=== PATIENT | female | born 1960 | race American Indian/Alaskan Native ===

== ENCOUNTER 2021-05-15 11:09 | Outpatient (CLI) | payer MEDICARE ==
--- NOTE | 2021-05-15 13:56 | XRay Report ---
Bilateral knees INDICATION: Knee pain FINDINGS: Patellofemoral degenerative changes seen in bilateral knees with joint space narrowing. No acute fracture dislocation. No large effusion Signer Name: Burke Tapia MD Signed: 05/15/2021 1:52 PM Workstation Name: [id number]
== END 2021-05-15 11:10 | disposition home or self-care (01) ==
LOC: XRAY 11:09
PROVIDERS: ATTEND Nurse Practitioner Family
DX: M17.0 Bilateral primary osteoarthritis of knee (principal)

== ENCOUNTER 2021-11-29 11:32 | Emergency (ER) | payer MEDICARE ==
[2021-11-29 14:06] VITALS: BP 158/86
[2021-11-29] MEDS ORDERED: HYDROcodone/ACETAMINOPHEN 5-325 MG TAB PO ONE (15:23)
[2021-11-29] MEDS ORDERED: IBUPROFEN 800 MG TAB PO ONE (15:23)
[2021-11-29] MEDS ORDERED: CYCLOBENZAPRINE 10 MG TAB PO ONE (15:23)
--- NOTE | 2021-11-29 15:39 | Emergency Department Report ---
ED Fall HPI - General Chief Complaint: Fall Stated Complaint: FALL INJURY Time Seen by Provider: 11/29/21 15:21 Source: patient Mode of arrival: Ambulatory - History of Present Illness Initial Comments: 61-year-old female with history of breast cancer presents to the emergency dep artment after a fall injury. Patient reports she was at the [employer] when she tripped and fell over a bucket landing on her left side, states she was unable to stand after the event. Describes sharp pain all in her left side including her hip and knee thigh and ankle. She denies use of blood thinners, she denies injury to head neck or back, she denies headache dizziness vision changes. Symptoms associated with numbness in her foot. -: Sudden, hour(s) Fall From: standing When Fall Occurred: 1 hour [employer]ELD ADVIS[employer] Fall Witnessed: yes, by bystander Place Fall Occurred: other ([facility]) Loss of Consciousness: none Prolonged Down Time?: no Symptoms Prior to Fall: none Location - Extremities: Left: Shoulder, Leg, Ankle Severity: severe Severity scale (0 -10): 10 Quality: sharp Context: tripped/slipped Associated Symptoms: numbness, unable to walk. denies: headache, neck pain, chest paint, shortness of breath, abdominal pain, hematuria, lightheaded, vertigo - Related Data Previous Rx's Medication Instructions Recorded Last Taken Type Naproxen [Naprosyn] 500 mg PO BID PRN #30 tablet 11/29/21 Unknown Rx methOCARBAMOL [Robaxin TAB] 750 mg PO Q8H PRN #30 11/29/21 Unknown Rx traMADoL [Ultram 50 MG tab] 50 mg PO Q4HR PRN #12 tablet 11/29/21 Unknown Rx Allergies Allergy/AdvReac Type Severity Reaction Status Date / Time peach Allergy Swelling Verified 11/29/21 14:01 ED Review of Systems ROS: Stated complaint: FALL INJURY Other details as noted in HPI Constitutional: denies: chills, fever ENT: denies: ear pain, throat pain Respiratory: denies: cough, orthopnea Cardiovascular: denies: chest pain, palpitations, edema Endocrine: denies: intolerance to cold, intolerance to heat Gastrointestinal: denies: abdominal pain, nausea, vomiting Genitourinary: denies: urgency Musculoskeletal: back pain, joint swelling, arthralgia, myalgia Skin: denies: rash, lesions Neurological: numbness. denies: headache, weakness, paresthesias, abnormal gait Psychiatric: denies: homicidal thoughts, suicidal thoughts ED Past Medical Hx - Past Medical History Previous Medical History?: No Hx of Cancer: Yes (BREASTBREAS) Additional medical history: BREAST CA - Surgical History Additional Surgical History: BREAST - Medications Home Medications: Home Medications Medication Instructions Recorded Confirmed Last Taken Type Naproxen [Naprosyn] 500 mg PO BID PRN #30 tablet 11/29/21 Unknown Rx methOCARBAMOL [Robaxin TAB] 750 mg PO Q8H PRN #30 11/29/21 Unknown Rx traMADoL [Ultram 50 MG tab] 50 mg PO Q4HR PRN #12 tablet 11/29/21 Unknown Rx ED Physical Exam - General Limitations: No Limitations General appearance: alert, in no apparent distress - Head Head exam: Present: atraumatic - Eye Eye exam: Present: normal appearance, PERRL Pupils: Present: normal accommodation - ENT ENT exam: Present: normal exam, normal orophraynx - Neck Neck exam: Present: normal inspection, full ROM. Absent: tenderness - Respiratory Respiratory exam: Present: normal lung sounds bilaterally. Absent: respiratory distress - Cardiovascular Cardiovascular Exam: Present: regular rate, normal rhythm - GI/Abdominal GI/Abdominal exam: Present: soft. Absent: distended, tenderness - Extremities Exam Extremities exam: Present: tenderness, normal capillary refill, pedal edema, joint swelling. Absent: full ROM - Expanded Lower Extremity Exam Left Neuro vascular tendon exam: Present: no vascular compromise. Absent: pulse deficit, sensory deficit Gait: Positive: unable to bear weight (There is no obvious swelling or deformity of extremities) 1 - Patient is overly tender mildly palpated 2 - Patient is overly tender mildly palpated 3 - Patient is overly tender mildly palpated - Back Exam Back exam: Present: paraspinal tenderness. Absent: vertebral tenderness - Neurological Exam Neurological exam: Present: alert, oriented X3, CN II-XII intact. Absent: motor sensory deficit - Psychiatric Psychiatric exam: Present: normal affect, normal mood - Skin Skin exam: Present: warm, dry, intact. Absent: abrasion, ecchymosis ED Course Vital Signs 11/29/21 14:05 Temperature 98.2 F Pulse Rate 64 Respiratory 18 Rate Blood Pressure 158/86 [Right] O2 Sat by Pulse 96 Oximetry ED Medical Decision Making - Lab Data Result diagrams: 11/29/21 18:56 11/29/21 18:56 - Radiology Data d - Medical Decision Making 61-year-old female with history of breast cancer presents to the emergency department after a fall injury. Patient reports she was at the [employer] when she tripped and fell over a bucket landing on her left side, states she was unable to stand after the event. Describes sharp pain all in her left side including her hip and knee thigh and ankle. She denies use of blood thinners, she denies injury to head neck or back, she denies headache dizziness vision changes. Symptoms associated with numbness in her foot, no chest pain, no headache, no dizziness no vision changes, X-ray of the pelvis concerning for nondisplaced acetabular fracture of the left hip. CT imaging ordered, which negative for any acute fractures or displacements, patient has some osteoarthritic changes in her joints. Vital signs remained stable, she is nontoxic-appearing, plan is to discharge patient home with supportive therapy including NSAIDs, few tablets of opioid, muscle relaxant, ice and orthopedic follow-up. Knee immobilizer to the left knee, Patient remained stable nontoxic-appearing, afebrile, ambulating steadily wit hout assistance. Gone over ED findings with patient as well as plan for follow- up. Also discussed return precautions with patient, all questions and concerns addressed. Patient is stable to be discharged follow-up outpatient. Audio voice dictation device used, hence the chart might contain some dictation errors, mispronunciations, wrong spelling and wrong verbiage. Critical care attestation.: If time is entered above; I have spent that time in minutes in the direct care of this critically ill patient, excluding procedure time. ED Disposition Clinical Impression: Fall, Hip pain, Knee pain, left, Muscle strain Disposition: HOME / SELF CARE / HOMELESS Is pt being admited?: No Does the pt Need Aspirin: No Condition: Stable Instructions: Hip Pain, How to Use Cold Therapy, Joint Pain, [id number] Prescriptions: Naproxen [Naprosyn] 500 mg PO BID PRN #30 tablet PRN Reason: Pain , Severe (7-10) methOCARBAMOL [Robaxin TAB] 750 mg PO Q8H PRN #30 PRN Reason: Muscle Spasm traMADoL [Ultram 50 MG tab] 50 mg PO Q4HR PRN #12 tablet PRN Reason: Pain Referrals: ABRAN CUELLAR MD [Staff Physician] - 3-5 Days Forms: Work/School Release Form(ED)
--- NOTE | 2021-11-29 16:02 | XRay Report ---
Left ankle, 2 views HISTORY: Fall COMPARISON: None FINDINGS: There is no acute fracture or malalignment of the left ankle. No significant arthritis. No focal soft tissue abnormality. IMPRESSION: No acute findings Signer Name: Martinez Gauthier MD Signed: 11/29/2021 3:58 PM Workstation Name: [id number]
--- NOTE | 2021-11-29 16:02 | XRay Report ---
XR knee 1-2V LT INDICATION / CLINICAL INFORMATION: fall, pain, non ambulatory. COMPARISON: None available. FINDINGS: BONES/JOINT(S): No acute fracture or subluxation. Mild osteoarthritis. No focal bone erosions or foca l osteopenia to suggest inflammatory arthropathy. SOFT TISSUES: No significant abnormality. ADDITIONAL FINDINGS: None. Signer Name: Esvin Avalos MD Signed: 11/29/2021 3:58 PM Workstation Name: [id number]
--- NOTE | 2021-11-29 16:24 | XRay Report ---
LEFT HIP 2 VIEW(S) INDICATION / CLINICAL INFORMATION: fall, pain, non ambulatory COMPARISON: None available. FINDINGS: BONES / JOINT(S): There is a subtle lucency in the lateral superior aspect of the acetabulum suspicio us for nondisplaced fracture. Joint spaces are maintained. SOFT TISSUES: No significant abnormality. ADDITIONAL FINDINGS: None. IMPRESSION: There is a subtle lucency along the superior lateral aspect of the left acetabulum suspicious for non displaced fracture. Signer Name: Rey Barnes MD Signed: 11/29/2021 4:19 PM Workstation Name: [email or web address] [id number]
[2021-11-29] MEDS ORDERED: MORPHINE 4 MG/1 ML INJ IV ONE (19:04)
[2021-11-29] MEDS ORDERED: ONDANSETRON 4 MG/2 ML INJ IV ONE (19:04)
[2021-11-29 19:25] LABS: Basophils % (Auto) 0.4 % (0.0-1.8); Eosinophils # (Auto) 0.3 K/mm3 (0.0-0.4); Eosinophils % (Auto) 4.4 % (0.0-4.3); Hematocrit 39.2 % (30.3-42.9); Hemoglobin 12.4 gm/dl (10.1-14.3); Lymphocytes # (Auto) 2.7 K/mm3 (1.2-5.4); Lymphocytes % (Auto) 46.4 % (13.4-35.0); Mean Corpuscular HGB Conc 32 % (30-34); Mean Corpuscular Volume 91 fl (79-97); Monocytes # (Auto) 0.3 K/mm3 (0.0-0.8); Monocytes % (Auto) 5.8 % (0.0-7.3); Platelet Count 214 K/mm3 (140-440); Red Cell Distribution Width 13.9 % (13.2-15.2)
[2021-11-29 19:32] LABS: INR 0.86 (0.87-1.13)
[2021-11-29 19:33] LABS: Partial Thromboplastin Time 28.2 Sec. (24.2-36.6)
[2021-11-29 19:39] LABS: BUN/Creatinine Ratio 10; Blood Urea Nitrogen 10 mg/dL (7-17); Calcium 9.6 mg/dL (8.4-10.2); Hemolysis Index 9
--- NOTE | 2021-11-29 19:58 | Cat Scan Report ---
CT pelvis without contrast INDICATION : possible acetabular fracture. TECHNIQUE: Axial imaging performed through the pelvis without the use of contrast. All CT scans at this location are performed using CT dose reduction for ALARA by means of automated exposure control. COMPARISON: Left hip series from earlier today FINDINGS: No displaced fracture identified. There are nutrient canals along each acetabular roof. Mil d degenerative changes in the hips and the pubic symphysis as well as the lumbar spine with grade 1 a nterolisthesis of L5 on S1. No acute musculotendinous abnormality or significant soft tissue swelling. Incidental note made of mi ld colonic diverticulosis with no acute inflammation. IMPRESSION: No acute fracture identified. Degenerative changes in the pelvis and lumbar spine. Signer Name: Cody Chino MD Signed: 11/29/2021 7:53 PM Workstation Name: [id number]
== END 2021-11-29 21:58 | disposition home or self-care (01) ==
LOC: ED 11:32
DX: M25.552 Pain in left hip (principal); M25.562 Pain in left knee; T14.8XXA Other injury of unspecified body region, initial encounter; W19.XXXA Unspecified fall, initial encounter; Y93.89 Activity, other specified; Y92.89 Other specified places as the place of occurrence of the external cause; Y99.8 Other external cause status; Z91.018 Allergy to other foods
CPT/HCPCS: 36415; 72192; 73502; 73560; 73600; 80048; 85025; 85610; 85730; 96374; 96375; 99284; J2270; J2405